=== PATIENT | male | born 1945 | race Caucasian/White ===

== ENCOUNTER 2017-11-02 10:00 | Outpatient (RCR) | payer MEDICARE, BC ==
[2015-04-15 10:15] VITALS: BMI 31.6
[2017-09-07 10:07] VITALS: BP 173/84
[2017-09-07 10:30] LABS: PLATELET COUNT, AUTOMATED 169 K/uL (150-450)
[~2017-11-02 10:00] MED LIST: ACET-1748 PO; ALB18R INH; ALBU8.5H IH; ALPR-1 PO; AZIT-17 PO; AZIT500T47 PO; CALC-852 PO; CALCIUM; CEFU500T10 PO; CELE-1 PO; CHOL200022 PO; CHOL200038 PO; CYCL10TA29 PO; DEXTROSE 5%(*) 100 ML BAG 100 ML IVPB PRN; DIPH-740 PO; ENOX60DI8 SQ; ESC10 PO; ESCI5TAB3 PO; FOL1 PO; FOLI-68 PO; GUAI-334 PO; IBAN150T6 PO; INF100I IV; INFLIXIMAB IVPB ONE; LEVO-85 PO; LIDOCAINE/SOD BICARB 8.4% SYR ID PRN; LOR5/325 PO; META-1 PO; METH2.5T43 PO; NAPR-1043 PO; NEB5 PO; NS 0.9% IVPB ONE; NS(*) 0.9% 100 ML BAG 100 ML IVPB PRN; OMEP-137 PO; OMEP-218 PO; OXYGENHOME INH; PANT40TA65 PO; PRE5 PO; PRED-1 PO; PRED20TA6 PO; SPIR25TA78 PO; WAR1 PO; WAR5 PO; WARF-18 PO
[2017-11-02 13:31] LABS: PLATELET COUNT, AUTOMATED 167 K/uL (150-450)
[2017-11-02 13:40] VITALS: BP 136/87
[2017-11-02] MEDS ORDERED: INFLIXIMAB IVPB ONE (14:00)
[2017-11-02] MEDS ORDERED: NS 0.9% IVPB ONE (14:00)
== END 2017-12-03 ==
LOC: SPU 10:00
PROVIDERS: ATTEND Internal Medicine
DX: M06.9 Rheumatoid arthritis, unspecified (principal); Z79.899 Other long term (current) drug therapy; Z79.52 Long term (current) use of systemic steroids
CPT/HCPCS: 82565; 85025; 85651; 86140; 86141; 96413; 96415; J1745; J7050; 82040; 82247; 82248; 84075; 84155; 84450; 84460

== ENCOUNTER 2018-01-04 09:57 | Outpatient (RCR) | payer MEDICARE, BC ==
[2015-04-15 10:15] VITALS: BMI 31.6
[~2018-01-04 09:57] MED LIST changes: -INFLIXIMAB IVPB ONE; -NS 0.9% IVPB ONE; -WARF-18 PO; +WARF5TAB23 PO
[2018-01-04 10:12] VITALS: BP 136/85
[2018-01-04] MEDS ORDERED: inFLIXimab 100 MG VIAL 700 MG in NS(*) 0.9% 250 ML BAG 250 ML IVPB ONE (10:35)
[2018-03-08] MEDS ORDERED: ESCI5TAB3 PO (14:18)
[2018-03-09] MEDS ORDERED: ABA250I IV (10:08)
[2018-03-18] MEDS ORDERED: CHOL200022 PO (13:27)
== END 2018-04-01 ==
LOC: SPU 09:57
PROVIDERS: ATTEND Internal Medicine
DX: M06.9 Rheumatoid arthritis, unspecified (principal); Z79.899 Other long term (current) drug therapy; Z79.52 Long term (current) use of systemic steroids
CPT/HCPCS: 96365; 96366; J1745; J7050

== ENCOUNTER 2018-03-08 11:46 | Emergency (ER) | payer MEDICARE, BC ==
[2015-04-15 10:15] VITALS: Wt 93.0 kg
[~2018-03-08 11:46] MED LIST changes: -DEXTROSE 5%(*) 100 ML BAG 100 ML IVPB PRN; -LIDOCAINE/SOD BICARB 8.4% SYR ID PRN; -NS(*) 0.9% 100 ML BAG 100 ML IVPB PRN
[2018-03-08] MEDS ORDERED: NS(*) 0.9% 500 ML BAG 500 ML IV ONE (12:11)
--- NOTE | 2018-03-08 12:11 | ER Report ---
History and Physical Time Seen By MD: 12:08 Hx. of Stated Complaint: "JUST DOESN'T FEEL WELL" aLL HIS MUSCLES AND JOINTS HURT. HAS ARTHRITIS HPI/ROS CHIEF COMPLAINT: Diffuse aches and pains in the setting of rheumatoid arthritis HISTORY OF PRESENT ILLNESS: Patient is a 72-year-old male here with complaints of diffuse aches and pains and weakness and decreased appetite for the past several days which has been progressively worsening. She has a history of rheumatoid arthritis and is currently on prednisone and Remicade. He denies recent trauma, fevers or chills. He is concerned that he has an infection which prompted his evaluation today. Patient denies headache, sore throat, chest pain , worsening shortness of breath, abdominal pain, nausea, vomiting, dysuria. Patient is on 2 L nasal cannula baseline. REVIEW OF SYSTEMS: Constitutional: No fever, no chills. Eyes: No discharge. ENT: No sore throat. Cardiovascular: No chest pain, no palpitations. Respiratory: No cough, no shortness of breath. Gastrointestinal: No abdominal pain, no vomiting. Genitourinary: No hematuria. Musculoskeletal: + diffuse aching pains in joints, weakness Skin: No rashes. Neurological: No headache or focal neuro deficits Allergies: Coded Allergies: amoxicillin (Verified Allergy, Severe, SHORTNESS OF BREATH, dizzy, rash, ) penicillin G (Verified Allergy, Intermediate, rash, 07/09/16) celecoxib (Verified Allergy, Mild, legs swollen, 07/09/16) valdecoxib (Verified Allergy, Mild, swollen legs, 07/09/16) Home Meds Active Scripts Escitalopram Oxalate (ESCITALOPRAM OXALATE) 5 Mg Tablet, 1 TAB PO QDAY, #30 TAB Prov:MAG PARTIDA MD 03/08/18 Albuterol Sulfate (VENTOLIN HFA) 18 Gm Inh, 2 PUFF INH Q4-6H Y for shortness of breath, #1 INH 3 Refills Prov:MAG PARTIDA MD 08/05/17 Warfarin Sodium (WARFARIN SODIUM) 5 Mg Tablet, 1 TAB PO QDAY, #90 TAB 3 Refills Or as directed based on INR. Prov:MAG PARTIDA MD 07/29/17 Spironolactone (SPIRONOLACTONE) 25 Mg Tablet, 1 TAB PO QAM, #90 TAB 3 Refills Prov:MAG PARTIAD MD 07/29/17 Pantoprazole Sodium (PANTOPRAZOLE SODIUM) 40 Mg Tablet.dr, 1 TAB PO QDAY, #14 TAB.SR 1 Refill Prov:MAG PARTIDA MD 07/29/17 Folic Acid (FOLIC ACID) 1 Mg Tablet, 1 TAB PO DAILY, #90 TAB 4 Refills Prov:DANAY DO PHARMD 06/01/17 Prednisone 5 Mg Tab (PREDNISONE 5 MG TAB) 5 Mg Tablet, 1-2 TAB PO QDAY, #200 TAB 2 Refills Prov:MAG PARTIDA MD 06/12/16 Omeprazole (OMEPRAZOLE) 20 Mg Tablet.dr, 1 TAB PO QAM, #90 TAB 3 Refills Prov:NACHO LANDERS MD 05/09/15 Methotrexate Sodium (METHOTREXATE) 2.5 Mg Tablet, 6 TAB PO QWEEK, #72 TAB 3 Refills Prov:NACHO LANDERS MD 05/09/15 Reported Medications Oxygen (OXYGEN) Inha, 2 L INH HS, L 2 liters nnps hs and prn during the day 11/04/16 Infliximab (REMICADE) 100 Mg Soln, 700 MG IV EVERY 8 WEEKS 08/07/14 Naproxen Sodium (ALEVE) 220 Mg Tablet, 2 TAB PO BID Y for PRN 08/07/14 Past Medical/Surgical History Patient has a history of CVA, atrial fibrillation, DVT, pulmonary embolism, rheumatoid arthritis Reviewed Nurses Notes: Yes Old Medical Records Reviewed: Yes Hx Smoking: Yes (1 ppd) Smoking Status: Current: Every Day Smoker Exposure to Second Hand Smoke?: Yes Hx Substance Use Disorder: Yes Hx Alcohol Use: Yes (rare) Constitutional Vital Sign - Last 24 Hours 03/08/18 03/08/18 03/08/18 03/08/18 11:46 11:53 11:54 12:00 Temp 98.7 Pulse ??? 94 Resp 18 B/P (MAP) 130/87 130/87 (101) 143/84 (103) Pulse Ox 86 O2 Delivery Room Air 03/08/18 03/08/18 03/08/18 03/08/18 12:01 12:16 12:30 12:46 Pulse 78 74 B/P (MAP) 131/85 (100) Pulse Ox 93 90 O2 Flow Rate 2.0 03/08/18 03/08/18 03/08/18 03/08/18 12:46 12:51 13:00 13:06 Pulse 74 74 ??? Resp 19 B/P (MAP) 136/81 (99) Pulse Ox 91 89 03/08/18 03/08/18 03/08/18 03/08/18 13:21 13:36 13:51 14:06 Pulse 68 74 66 69 Resp 15 14 37 Pulse Ox 92 93 91 03/08/18 03/08/18 03/08/18 14:21 14:26 14:36 Pulse 73 70 Resp 45 22 B/P (MAP) 146/88 (107) Pulse Ox 89 92 Intake and Output 03/08/18 03/08/18 03/09/18 15:00 23:00 07:00 Intake Total 500 ml Balance 500 ml Physical Exam General Appearance: The patient is alert, has no immediate need for airway protection and no signs of toxicity. No acute distress Eyes: Pupils equal and round no pallor or injection. ENT, Mouth: Mucous membranes are moist. Respiratory: There are no retractions, lungs are clear to auscultation. Cardiovascular: No murmurs or rubs Gastrointestinal: Abdomen is soft and non tender, no masses, bowel sounds normal. Neurological: Moving all extremities spontaneously, sensation intact in distal extremities Skin: Warm and dry, no rashes. Musculoskeletal: Neck is supple non tender. Extremities are nontender, nonswollen and have full range of motion. DIFFERENTIAL DIAGNOSIS: After history and physical exam differential diagnosis was considered for electrolyte abnormality, dehydration, RA exacerbation, infection, PMR Medical Decision Making Data Points Result Diagram: 03/08/18 1227 03/08/18 1227 Laboratory Hematology Test 03/08/18 12:27 03/08/18 12:43 Red Blood Count 5.06 M/uL (4.00-5.60) Mean Corpuscular Volume 95.8 fL (80.0-96.0) Mean Corpuscular Hemoglobin 32.2 pg (26.0-33.0) Mean Corpuscular Hemoglobin Concent 33.7 g/dL (32.0-36.0) Red Cell Distribution Width 14.0 % (11.5-14.5) Mean Platelet Volume 7.8 fL (7.2-11.1) Neutrophils (%) (Auto) 80.8 % (39.4-72.5) Lymphocytes (%) (Auto) 11.9 % (17.6-49.6) Monocytes (%) (Auto) 5.9 % (4.1-12.4) Eosinophils (%) (Auto) 0.9 % (0.4-6.7) Basophils (%) (Auto) 0.5 % (0.3-1.4) Nucleated RBC Relative Count (auto) 0.0 /100WBC Neutrophils # (Auto) 7.0 K/uL (2.0-7.4) Lymphocytes # (Auto) 1.0 K/uL (1.3-3.6) Monocytes # (Auto) 0.5 K/uL (0.3-1.0) Eosinophils # (Auto) 0.1 K/uL (0.0-0.5) Basophils # (Auto) 0.0 K/uL (0.0-0.1) Nucleated RBC Absolute Count (auto) 0.00 K/uL Erythrocyte Sedimentation Rate 44 mm/HOUR (0-20) Prothrombin Time 17.0 seconds (12.0-14.4) Prothromb Time International Ratio 1.37 Activated Partial Thromboplast Time 30 seconds (23-35) Sodium Level 142 mmol/L (137-145) Potassium Level 4.0 mmol/L (3.5-5.0) Chloride Level 103 mmol/L (98-107) Carbon Dioxide Level 26 mmol/L (22-30) Blood Urea Nitrogen 18 mg/dl (9-21) Creatinine 0.70 mg/dl (0.66-1.25) Glomerular Filtration Rate Calc > 60.0 Random Glucose 133 mg/dl (75-110) Calcium Level 9.5 mg/dl (8.4-10.2) Total Bilirubin 0.6 mg/dl (0.2-1.3) Aspartate Amino Transf (AST/SGOT) 23 U/L (0-35) Alanine Aminotransferase (ALT/SGPT) 21 U/L (0-56) Alkaline Phosphatase 74 U/L (0-126) Total Creatine Kinase 50 U/L (55-170) Total Protein 7.2 gm/dl (6.3-8.2) Albumin 3.2 g/dl (3.5-5.0) Urine Color Yellow Urine Clarity Clear Urine pH 6.0 pH (4.8-9.5) Urine Specific [place] 1.013 Urine Protein Negative mg/dL (NEGATIVE) Urine Glucose (UA) Negative mg/dL (NEGATIVE) Urine Ketones Negative mg/dL (NEGATIVE) Urine Blood Negative (NEGATIVE) Urine Nitrite Negative (NEGATIVE) Urine Bilirubin Negative (NEGATIVE) Urine Urobilinogen 2.0 mg/dL (0.2-1.9) Urine Leukocyte Esterase Negative (NEGATIVE) Urine RBC <1 /HPF (0-2/HPF) Urine WBC 1 /HPF (0-5/HPF) Urine Squamous Epithelial Cells None /LPF (</=FEW) Urine Transitional Epithelial Cells Few /LPF (NONE-FEW) Urine Bacteria Negative /HPF (NONE-FEW) Urine Mucus None /HPF (NONE-FEW) Chemistry Test 03/08/18 12:27 03/08/18 12:43 White Blood Count 8.6 k/uL (4.5-11.0) Red Blood Count 5.06 M/uL (4.00-5.60) Hemoglobin 16.3 g/dL (14.0-18.0) Hematocrit 48.4 % (42.0-52.0) Mean Corpuscular Volume 95.8 fL (80.0-96.0) Mean Corpuscular Hemoglobin 32.2 pg (26.0-33.0) Mean Corpuscular Hemoglobin Concent 33.7 g/dL (32.0-36.0) Red Cell Distribution Width 14.0 % (11.5-14.5) Platelet Count 212 K/uL (150-450) Mean Platelet Volume 7.8 fL (7.2-11.1) Neutrophils (%) (Auto) 80.8 % (39.4-72.5) Lymphocytes (%) (Auto) 11.9 % (17.6-49.6) Monocytes (%) (Auto) 5.9 % (4.1-12.4) Eosinophils (%) (Auto) 0.9 % (0.4-6.7) Basophils (%) (Auto) 0.5 % (0.3-1.4) Nucleated RBC Relative Count (auto) 0.0 /100WBC Neutrophils # (Auto) 7.0 K/uL (2.0-7.4) Lymphocytes # (Auto) 1.0 K/uL (1.3-3.6) Monocytes # (Auto) 0.5 K/uL (0.3-1.0) Eosinophils # (Auto) 0.1 K/uL (0.0-0.5) Basophils # (Auto) 0.0 K/uL (0.0-0.1) Nucleated RBC Absolute Count (auto) 0.00 K/uL Erythrocyte Sedimentation Rate 44 mm/HOUR (0-20) Prothrombin Time 17.0 seconds (12.0-14.4) Prothromb Time International Ratio 1.37 Activated Partial Thromboplast Time 30 seconds (23-35) Glomerular Filtration Rate Calc > 60.0 Calcium Level 9.5 mg/dl (8.4-10.2) Total Bilirubin 0.6 mg/dl (0.2-1.3) Aspartate Amino Transf (AST/SGOT) 23 U/L (0-35) Alanine Aminotransferase (ALT/SGPT) 21 U/L (0-56) Alkaline Phosphatase 74 U/L (0-126) Total Creatine Kinase 50 U/L (55-170) Total Protein 7.2 gm/dl (6.3-8.2) Albumin 3.2 g/dl (3.5-5.0) Urine Color Yellow Urine Clarity Clear Urine pH 6.0 pH (4.8-9.5) Urine Specific [place] 1.013 Urine Protein Negative mg/dL (NEGATIVE) Urine Glucose (UA) Negative mg/dL (NEGATIVE) Urine Ketones Negative mg/dL (NEGATIVE) Urine Blood Negative (NEGATIVE) Urine Nitrite Negative (NEGATIVE) Urine Bilirubin Negative (NEGATIVE) Urine Urobilinogen 2.0 mg/dL (0.2-1.9) Urine Leukocyte Esterase Negative (NEGATIVE) Urine RBC <1 /HPF (0-2/HPF) Urine WBC 1 /HPF (0-5/HPF) Urine Squamous Epithelial Cells None /LPF (</=FEW) Urine Transitional Epithelial Cells Few /LPF (NONE-FEW) Urine Bacteria Negative /HPF (NONE-FEW) Urine Mucus None /HPF (NONE-FEW) Coagulation Test 03/08/18 12:27 Prothrombin Time 17.0 seconds Prothromb Time International Ratio 1.37 Activated Partial Thromboplast Time 30 seconds Urinalysis Test 03/08/18 12:43 Urine Color Yellow Urine Clarity Clear Urine pH 6.0 pH (4.8-9.5) Urine Specific [place] 1.013 Urine Protein Negative mg/dL (NEGATIVE) Urine Glucose (UA) Negative mg/dL (NEGATIVE) Urine Ketones Negative mg/dL (NEGATIVE) Urine Blood Negative (NEGATIVE) Urine Nitrite Negative (NEGATIVE) Urine Bilirubin Negative (NEGATIVE) Urine Urobilinogen 2.0 mg/dL (0.2-1.9) Urine Leukocyte Esterase Negative (NEGATIVE) Urine RBC <1 /HPF (0-2/HPF) Urine WBC 1 /HPF (0-5/HPF) Urine Squamous Epithelial Cells None /LPF (</=FEW) Urine Transitional Epithelial Cells Few /LPF (NONE-FEW) Urine Bacteria Negative /HPF (NONE-FEW) Urine Mucus None /HPF (NONE-FEW) EKG/Imaging Imaging Examination: CHEST PA AND LAT Comparison: 07/09/2016 History: Weakness and cough. Findings: Mildly enlarged cardiac and hilar contour is unchanged. Diffuse peribronchial and interstitial thickening as before. No new or enlarging consolidation or definite evidence of acute peribronchial inflammation. No pneumothorax, edema, or effusion. Demineralization with chronic deformity at the thoracolumbar junction. No definite acute osseous abnormality. IMPRESSION: Chronic changes with no findings of superimposed acute cardiopulmonary disease. ED Course/Re-evaluation ED Course Patient is a 72-year-old male here with complaints of weakness, generalized body aches in the setting of rheumatoid arthritis and history significant for prior DVTs, PE, A. fib on Coumadin. Patient denies focal neurological deficits at time of evaluation. He has a possible infusion for his rheumatoid arthritis coming up in the subsequent weeks and was concerned that he may have an infectious etiology which would preclude him from obtaining the transfusion. Patient received a 500 mL bolus of normal saline and remained stable during the course of evaluation. Labs are unremarkable. ESR was elevated at 44 but is likely consistent with his history of rheumatoid arthritis. His chest x-ray showed no acute findings. The patient's aching joint pains are consistent with his rheumatoid arthritis however the weakness that he describes is likely caused by an alternate etiology though no infectious etiology was able to be identified at this time. Urinalysis was also found to be unremarkable and not consistent with infection. I discussed the findings with the patient and his family who voice understanding. They agreed to follow up with his supervisor fine grading and family physician and to return promptly for any worsening of his symptoms. Patient was hemodynamically stable at time of discharge. Re-evaluation Patient was stable at time of reevaluation during ED course. Decision to Disposition Date: Mar 08, 2018 Decision to Disposition Time: 16:40 Depart Departure Latest Vital Signs Vital Signs Date Time Temp Pulse Resp B/P (MAP) Pulse Ox O2 Delivery O2 Flow Rate FiO2 03/08/18 14:36 146/88 (107) 03/08/18 14:26 70 22 92 03/08/18 12:46 2.0 03/08/18 11:53 98.7 Room Air Impression: Primary Impression: Weakness Additional Impression: Joint ache Condition: Improved Referrals: MAG PARTIDA MD (PCP) Patient Instructions: Weakness (ED) Additional Instructions: Please follow up closely with your family care doctor and supervisor fine grading to discuss further infusions of medications Problem Qualifiers LARRY JOHANSEN DO Mar 08, 2018 12:11
[2018-03-08 12:37] LABS: PLATELET COUNT, AUTOMATED 212 K/uL (150-450)
[2018-03-08 12:46] LABS: INR 1.37
--- NOTE | 2018-03-08 13:33 | RADIOLOGY IMAGING REPORT ---
FACILITY[place] [facility] [place] NAME: Jerrod Costello : 1945 MR: [id number] V: [id number] EXAM DATE: ORDERING PHYSICIAN: LARRY JOHANSEN TECHNOLOGIST: Location: [facility] Patient: Jerrod Costello : 1945 Visit/Account:[id number] Date of Sevice: 03/08/2018 Examination: CHEST PA AND LAT Comparison: 07/09/2016 History: Weakness and cough. Findings: Mildly enlarged cardiac and hilar contour is unchanged. Diffuse peribronchial and interstit ial thickening as before. No new or enlarging consolidation or definite evidence of acute peribronchi al inflammation. No pneumothorax, edema, or effusion. Demineralization with chronic deformity at the thoracolumbar junction. No definite acute osseous abnormality. IMPRESSION: Chronic changes with no findings of superimposed acute cardiopulmonary disease. Report Dictated By: Vj Stern MD at 03/08/2018 1:27 PM Report E-Signed By: Vj Stern MD at 03/08/2018 1:29 PM [id number]
[2018-03-08] MEDS ORDERED: ESCI5TAB3 PO (14:18)
[2018-03-08 14:36] VITALS: BP 146/88
[2018-03-09] MEDS ORDERED: ABA250I IV (10:08)
== END 2018-03-08 14:45 | disposition home or self-care (01) ==
LOC: ER 12:01
DX: M06.9 Rheumatoid arthritis, unspecified (principal); F17.210 Nicotine dependence, cigarettes, uncomplicated; Z79.01 Long term (current) use of anticoagulants
CPT/HCPCS: 71046; 81001; 82550; 85025; 85610; 85651; 85730; 96360; 99284; J7040; 82040; 82247; 82310; 82374; 82435; 82565; 82947; 84075; 84132; 84155; 84295; 84450; 84460; 84520

== ENCOUNTER 2018-06-15 12:48 | Outpatient (RCR) | payer MEDICARE, BC ==
[2015-04-15 10:15] VITALS: Wt 91.5 kg
[2018-04-13 14:33] VITALS: BP 148/97
[2018-04-13 15:09] LABS: PLATELET COUNT, AUTOMATED 172 K/uL (150-450)
[2018-04-13] MEDS: NS(*) 0.9% 100 ML BAG 100 ML IVPB PRN (15:10)
[2018-05-11 13:53] VITALS: BP 146/94
[2018-05-11] MEDS: NS(*) 0.9% 100 ML BAG 100 ML IVPB PRN (14:03)
[~2018-06-15 12:48] MED LIST changes: +ABA250I IV; +ABATACEPT 250 MG SDV 750 MG in NS(*) 0.9% 100 ML BAG 100 ML IVPB ONE; +DEXTROSE 5%(*) 100 ML BAG 100 ML IVPB PRN; +LIDOCAINE/SOD BICARB 8.4% SYR ID PRN; +SPIR25TA80 PO
[2018-06-15] MEDS ORDERED: ABATACEPT 250 MG SDV 750 MG in NS(*) 0.9% 100 ML BAG 100 ML IVPB ONE (13:15)
[2018-06-15 13:17] LABS: PLATELET COUNT, AUTOMATED 186 K/uL (150-450)
[2018-06-15 13:20] VITALS: BP 116/71
[2018-06-15] MEDS: NS(*) 0.9% 100 ML BAG 100 ML IVPB PRN (13:26)
[2018-06-15 14:11] VITALS: BP 159/86
== END 2018-07-12 ==
LOC: SPU 12:48
PROVIDERS: ATTEND Internal Medicine Rheumatology
DX: M05.79 Rheumatoid arthritis with rheumatoid factor of multiple sites without organ or systems involvement (principal)
CPT/HCPCS: 85025; 85651; 86140; 96365; 96366; J0129; J7050; 82040; 82247; 82310; 82374; 82435; 82565; 82947; 84075; 84132; 84155; 84295; 84450; 84460; 84520

== ENCOUNTER 2018-09-16 09:54 | Outpatient (RCR) | payer MEDICARE, BC ==
[2015-04-15 10:15] VITALS: BMI 31.6
[2018-07-16 14:42] VITALS: BP 152/92
[2018-07-16 16:41] VITALS: BP 132/82
[2018-08-16 10:56] VITALS: BP 140/69
[2018-08-16 11:14] LABS: PLATELET COUNT, AUTOMATED 227 K/uL (150-450)
[2018-08-16] MEDS: NS(*) 0.9% 100 ML BAG 100 ML IVPB PRN (11:29)
[2018-08-16 12:08] VITALS: BP 130/80
[~2018-09-16 09:54] MED LIST changes: +CHOL200018 PO; -CHOL200022 PO
[2018-09-16 10:01] VITALS: BP 141/113
[2018-09-16] MEDS ORDERED: ABATACEPT 250 MG SDV 750 MG in NS(*) 0.9% 100 ML BAG 100 ML IVPB ONE (10:05)
[2018-09-16] MEDS: NS(*) 0.9% 100 ML BAG 100 ML IVPB PRN (10:40)
[2018-09-30] MEDS ORDERED: OMEP-137 PO (13:31)
[2018-09-30] MEDS ORDERED: WARF5TAB23 PO (13:32)
[2018-09-30] MEDS ORDERED: ESCI5TAB3 PO (13:32)
== END 2018-10-13 ==
LOC: SPU 09:54
PROVIDERS: ATTEND Internal Medicine Rheumatology
DX: M05.79 Rheumatoid arthritis with rheumatoid factor of multiple sites without organ or systems involvement (principal)
CPT/HCPCS: 85025; 85651; 86140; 96365; J0129; J7050; 82040; 82247; 82310; 82374; 82435; 82565; 82947; 84075; 84132; 84155; 84295; 84450; 84460; 84520

== ENCOUNTER 2019-01-04 12:34 | Emergency (ER) | payer MEDICARE, BC ==
[2015-04-15 10:15] VITALS: Wt 93.0 kg
[~2019-01-04 12:34] MED LIST changes: -ABATACEPT 250 MG SDV 750 MG in NS(*) 0.9% 100 ML BAG 100 ML IVPB ONE; -DEXTROSE 5%(*) 100 ML BAG 100 ML IVPB PRN; -LIDOCAINE/SOD BICARB 8.4% SYR ID PRN
[2019-01-04] MEDS ORDERED: PRED-317 PO (12:48)
--- NOTE | 2019-01-04 13:08 | ER Report ---
History and Physical Time Seen By MD: 12:50 Hx. of Stated Complaint: Patient with dark urine x 2 days. Also with chronic back pain HPI/ROS CHIEF COMPLAINT: Dark urine HISTORY OF PRESENT ILLNESS: 73-year-old male is on Coumadin for history of PE, presents with dark urine 2 days. He has never had this before. He does not have pain with urination. Every urine sample is dark. He has no fevers, chills, shortness breath, chest pain, new swelling in legs. He has a recent URI has been taking Mucinex and Robitussin. He has not had recent significant sore throat. He does not have recent trauma or change in bruising. He is on home 02 for copd and chf REVIEW OF SYSTEMS: Constitutional: No fever, no chills. Eyes: no blurred vision ENT: No sore throat. Cardiovascular: No chest pain, no palpitations. Respiratory: No cough, no shortness of breath. Gastrointestinal: No abdominal pain, no vomiting. Genitourinary: above Musculoskeletal: No back pain. Skin: No rashes. Neurological: No headache. Remainder of the 14 system rev: Yes Allergies: Coded Allergies: amoxicillin (Verified Allergy, Severe, SHORTNESS OF BREATH, dizzy, rash, 07/09/16) penicillin G (Verified Allergy, Intermediate, rash, 07/09/16) celecoxib (Verified Allergy, Mild, legs swollen, 07/09/16) valdecoxib (Verified Allergy, Mild, swollen legs, 07/09/16) Home Meds Active Scripts Escitalopram Oxalate (ESCITALOPRAM OXALATE) 5 Mg Tablet, 1 TAB PO QDAY, #90 TAB 3 Refills Prov:MAG PARTIDA MD 09/30/18 Warfarin Sodium (WARFARIN SODIUM) 5 Mg Tablet, 1 TAB PO QDAY, #90 TAB 3 Refills Or as directed based on INR. Prov:MAG PARTIDA MD 09/30/18 Omeprazole (OMEPRAZOLE) 20 Mg Tablet., 1 TAB PO DAILY PRN for heartburn, #90 T AB 3 Refills Prov:MAG PARTIDA MD 09/30/18 Spironolactone (SPIRONOLACTONE) 25 Mg Tablet, 1 TAB PO QAM, #90 TAB 3 Refills Prov:MAG PARTIDA MD 07/28/18 Albuterol Sulfate (VENTOLIN HFA) 18 Gm Inh, 2 PUFF INH Q4-6H PRN for shortness of breath, #1 INH 3 Refills Prov:MAG PARTIDA MD 08/05/17 Folic Acid (FOLIC ACID) 1 Mg Tablet, 1 TAB PO DAILY, #90 TAB 4 Refills Prov:DANAY DO PHARMD 06/01/17 Methotrexate Sodium (METHOTREXATE) 2.5 Mg Tablet, 6 TAB PO QWEEK, #72 TAB 3 Refills Prov:NACHO LANDERS MD 05/09/15 Reported Medications Prednisone (Prednisone) 5 Mg Tablet, 1 TAB PO DAILY 01/04/19 Cholecalciferol (Vitamin D3) (VITAMIN D) 2,000 Unit Tablet, 1 TAB PO QDAY, CAP JAKY 03/18/18 Abatacept (Orencia 250 mg Vial) 250 Mg Vial, 750 MG IV Q4WK 03/09/18 Oxygen (OXYGEN) Inha, 2 L INH cont 11/04/16 Discontinued Scripts Prednisone 5 Mg Tab (PREDNISONE 5 MG TAB) 5 Mg Tablet, 1-2 TAB PO QDAY, #200 TAB 2 Refills Prov:MAG PARTIDA MD 06/12/16 Reviewed Nurses Notes: Yes Old Medical Records Reviewed: Yes Hx Smoking: Yes (1 ppd) Smoking Status: Current: Every Day Smoker Exposure to Second Hand Smoke?: Yes Hx Substance Use Disorder: Yes Hx Alcohol Use: Yes (rare) Constitutional Vital Sign - Last 24 Hours 01/04/19 12:41 Temp 99.1 Pulse 97 Resp 16 B/P (MAP) 121/70 Pulse Ox 91 O2 Delivery Nasal Cannula Physical Exam General Appearance: The patient is alert, has no immediate need for airway protection and no signs of toxicity. Eyes: Pupils equal and round no pallor or injection. ENT, Mouth: Mucous membranes are moist. Respiratory: There are no retractions, lungs are clear to auscultation. Cardiovascular: Regular rate and rhythm. Gastrointestinal: Abdomen is soft and non tender, no masses, bowel sounds normal. Neurological: alert, no focal deficits Skin: Warm and dry, no rashes. Small ecchymoses of varying stages Musculoskeletal: Extremities are nontender, nonswollen and have full range of motion. DIFFERENTIAL DIAGNOSIS: After history and physical exam differential diagnosis was considered for hematuria, uti, renal failure, or other etiology of presentation. Medical Decision Making Data Points Result Diagram: 01/04/19 1317 01/04/19 1317 Laboratory Hematology Test 01/04/19 13:17 01/04/19 13:36 01/04/19 13:40 Red Blood Count 5.26 M/uL (4.00-5.60) Mean Corpuscular Volume 92.1 fL (80.0-96.0) Mean Corpuscular Hemoglobin 30.0 pg (26.0-33.0) Mean Corpuscular Hemoglobin Concent 32.6 g/dL (32.0-36.0) Red Cell Distribution Width 14.9 % (11.5-14.5) Mean Platelet Volume 7.8 fL (7.2-11.1) Neutrophils (%) (Auto) 83.9 % (39.4-72.5) Lymphocytes (%) (Auto) 5.3 % (17.6-49.6) Monocytes (%) (Auto) 9.1 % (4.1-12.4) Eosinophils (%) (Auto) 1.1 % (0.4-6.7) Basophils (%) (Auto) 0.6 % (0.3-1.4) Nucleated RBC Relative Count (auto) 0.0 /100WBC Neutrophils # (Auto) 9.8 K/uL (2.0-7.4) Lymphocytes # (Auto) 0.6 K/uL (1.3-3.6) Monocytes # (Auto) 1.1 K/uL (0.3-1.0) Eosinophils # (Auto) 0.1 K/uL (0.0-0.5) Basophils # (Auto) 0.1 K/uL (0.0-0.1) Nucleated RBC Absolute Count (auto) 0.00 K/uL Sodium Level 136 mmol/L (137-145) Potassium Level 4.1 mmol/L (3.5-5.0) Chloride Level 102 mmol/L (98-107) Carbon Dioxide Level 27 mmol/L (22-30) Blood Urea Nitrogen 20 mg/dl (9-21) Creatinine 0.60 mg/dl (0.66-1.25) Glomerular Filtration Rate Calc > 60.0 Random Glucose 164 mg/dl (75-110) Calcium Level 9.4 mg/dl (8.4-10.2) Total Bilirubin 0.8 mg/dl (0.2-1.3) Aspartate Amino Transf (AST/SGOT) 20 U/L (0-35) Alanine Aminotransferase (ALT/SGPT) 17 U/L (0-56) Alkaline Phosphatase 76 U/L (0-126) Total Protein 7.1 g/dl (6.3-8.2) Albumin 3.7 g/dl (3.5-5.0) Prothrombin Time 22.4 seconds (12.0-14.4) Prothromb Time International Ratio 1.94 Activated Partial Thromboplast Time 34 seconds (23-35) Urine Color [place] Urine Clarity Slightly-cloudy Urine pH 5.0 pH (4.8-9.5) Urine Specific [place] 1.027 Urine Protein 100 mg/dL (NEGATIVE) Urine Glucose (UA) Negative mg/dL (NEGATIVE) Urine Ketones Negative mg/dL (NEGATIVE) Urine Blood Large (NEGATIVE) Urine Nitrite Negative (NEGATIVE) Urine Bilirubin Negative (NEGATIVE) Urine Urobilinogen 2.0 mg/dL (0.2-1.9) Urine Leukocyte Esterase Negative (NEGATIVE) Urine RBC 212 /HPF (0-2/HPF) Urine WBC 17 /HPF (0-5/HPF) Urine Squamous Epithelial Cells None /LPF (</=FEW) Urine Bacteria Negative /HPF (NONE-FEW) Urine Mucus Few /HPF (NONE-FEW) Chemistry Test 01/04/19 13:17 01/04/19 13:36 01/04/19 13:40 White Blood Count 11.6 k/uL (4.5-11.0) Red Blood Count 5.26 M/uL (4.00-5.60) Hemoglobin 15.8 g/dL (14.0-18.0) Hematocrit 48.4 % (42.0-52.0) Mean Corpuscular Volume 92.1 fL (80.0-96.0) Mean Corpuscular Hemoglobin 30.0 pg (26.0-33.0) Mean Corpuscular Hemoglobin Concent 32.6 g/dL (32.0-36.0) Red Cell Distribution Width 14.9 % (11.5-14.5) Platelet Count 226 K/uL (150-450) Mean Platelet Volume 7.8 fL (7.2-11.1) Neutrophils (%) (Auto) 83.9 % (39.4-72.5) Lymphocytes (%) (Auto) 5.3 % (17.6-49.6) Monocytes (%) (Auto) 9.1 % (4.1-12.4) Eosinophils (%) (Auto) 1.1 % (0.4-6.7) Basophils (%) (Auto) 0.6 % (0.3-1.4) Nucleated RBC Relative Count (auto) 0.0 /100WBC Neutrophils # (Auto) 9.8 K/uL (2.0-7.4) Lymphocytes # (Auto) 0.6 K/uL (1.3-3.6) Monocytes # (Auto) 1.1 K/uL (0.3-1.0) Eosinophils # (Auto) 0.1 K/uL (0.0-0.5) Basophils # (Auto) 0.1 K/uL (0.0-0.1) Nucleated RBC Absolute Count (auto) 0.00 K/uL Glomerular Filtration Rate Calc > 60.0 Calcium Level 9.4 mg/dl (8.4-10.2) Total Bilirubin 0.8 mg/dl (0.2-1.3) Aspartate Amino Transf (AST/SGOT) 20 U/L (0-35) Alanine Aminotransferase (ALT/SGPT) 17 U/L (0-56) Alkaline Phosphatase 76 U/L (0-126) Total Protein 7.1 g/dl (6.3-8.2) Albumin 3.7 g/dl (3.5-5.0) Prothrombin Time 22.4 seconds (12.0-14.4) Prothromb Time International Ratio 1.94 Activated Partial Thromboplast Time 34 seconds (23-35) Urine Color Renu Urine Clarity Slightly-cloudy Urine pH 5.0 pH (4.8-9.5) Urine Specific [place] 1.027 Urine Protein 100 mg/dL (NEGATIVE) Urine Glucose (UA) Negative mg/dL (NEGATIVE) Urine Ketones Negative mg/dL (NEGATIVE) Urine Blood Large (NEGATIVE) Urine Nitrite Negative (NEGATIVE) Urine Bilirubin Negative (NEGATIVE) Urine Urobilinogen 2.0 mg/dL (0.2-1.9) Urine Leukocyte Esterase Negative (NEGATIVE) Urine RBC 212 /HPF (0-2/HPF) Urine WBC 17 /HPF (0-5/HPF) Urine Squamous Epithelial Cells None /LPF (</=FEW) Urine Bacteria Negative /HPF (NONE-FEW) Urine Mucus Few /HPF (NONE-FEW) Coagulation Test 01/04/19 13:36 Prothrombin Time 22.4 seconds Prothromb Time International Ratio 1.94 Activated Partial Thromboplast Time 34 seconds Urinalysis Test 01/04/19 13:40 Urine Color Renu Urine Clarity Slightly-cloudy Urine pH 5.0 pH (4.8-9.5) Urine Specific [place] 1.027 Urine Protein 100 mg/dL (NEGATIVE) Urine Glucose (UA) Negative mg/dL (NEGATIVE) Urine Ketones Negative mg/dL (NEGATIVE) Urine Blood Large (NEGATIVE) Urine Nitrite Negative (NEGATIVE) Urine Bilirubin Negative (NEGATIVE) Urine Urobilinogen 2.0 mg/dL (0.2-1.9) Urine Leukocyte Esterase Negative (NEGATIVE) Urine RBC 212 /HPF (0-2/HPF) Urine WBC 17 /HPF (0-5/HPF) Urine Squamous Epithelial Cells None /LPF (</=FEW) Urine Bacteria Negative /HPF (NONE-FEW) Urine Mucus Few /HPF (NONE-FEW) ED Course/Re-evaluation ED Course Pt presents wtih sgs of hematuria. Nl blood count and INR low therapeutic; ua most c/w likely uti/hemorrhagic cystitis but without significant abnormality. Wi ll initiate ax and offer f/u with pcm and urologist for re-evaluation. Decision to Disposition Date: Jan 04, 2019 Decision to Disposition Time: 14:16 Depart Departure Latest Vital Signs Vital Signs Date Time Temp Pulse Resp B/P (MAP) Pulse Ox O2 Delivery O2 Flow Rate FiO2 01/04/19 12:41 99.1 97 16 121/70 91 Nasal Cannula Impression: Primary Impression: Hemorrhagic cystitis Condition: Improved Disposition: HOME OR SELF-CARE Referrals: MAG PARTIDA MD (PCP) 5 Days EDGAR PENA MD 1 Week New Scripts Cephalexin 500 Mg Tab (KEFLEX 500 MG TAB) 500 Mg Tablet 500 MG PO BID for 7 Days, #14 TAB Prov: JOSE ENRIQUE COYLE MD 01/04/19 Patient Instructions: Urinary Tract Infection in Men (DC) Additional Instructions: Your findings are most consistent with a bladder infection. I have initiated an antibiotic and transmitted the prescription. Please take the entire course. You have tolerated similar class of antibiotics in the past. However, mild please return for rash swelling or any concerns. I recommend you follow up with primary doctor as well as the urologist, for reevaluation and ensuring that you improve. JOSE ENRIQUE COYLE MD Jan 04, 2019 13:08
[2019-01-04 13:27] LABS: PLATELET COUNT, AUTOMATED 226 K/uL (150-450)
[2019-01-04 13:51] LABS: INR 1.94
[2019-01-04 14:00] VITALS: BP 140/78
[2019-01-04] MEDS ORDERED: CEPHALEXIN MONO 500 MG CAP PO ONE (14:15)
[2019-01-04] MEDS ORDERED: CEPH500T7 PO (14:19)
== END 2019-01-04 14:30 | disposition home or self-care (01) ==
LOC: ER 12:41
DX: N30.91 Cystitis, unspecified with hematuria (principal)
CPT/HCPCS: 36415; 81001; 85025; 85610; 85730; 87088; 99283; A9270; 82040; 82247; 82310; 82374; 82435; 82565; 82947; 84075; 84132; 84155; 84295; 84450; 84460; 84520

== ENCOUNTER 2019-01-07 13:00 | Outpatient (RCR) | payer MEDICARE, BC ==
[2015-04-15 10:15] VITALS: BMI 31.6
[2018-10-18 13:10] VITALS: BP 134/75
[2018-10-18 13:29] LABS: PLATELET COUNT, AUTOMATED 198 K/uL (150-450)
[2018-11-18 13:30] VITALS: BP 145/79
[2018-11-18] MEDS: LIDOCAINE/SOD BICARB 8.4% SYR ID PRN (13:53)
[2018-11-18 14:37] VITALS: BP 116/78
[~2019-01-07 13:00] MED LIST changes: +ABATACEPT 250 MG SDV 750 MG in NS(*) 0.9% 100 ML BAG 100 ML IVPB ONE; +CEPH500T7 PO; +DEXTROSE 5%(*) 100 ML BAG 100 ML IVPB PRN; +NS(*) 0.9% 100 ML BAG 100 ML IVPB PRN; +PRED-317 PO
[2019-01-07 13:29] LABS: PLATELET COUNT, AUTOMATED 222 K/uL (150-450)
[2019-01-07 13:33] VITALS: BP 129/82
[2019-01-07] MEDS: LIDOCAINE/SOD BICARB 8.4% SYR ID PRN (13:35)
[2019-01-07] MEDS ORDERED: ABATACEPT 250 MG SDV 750 MG in NS(*) 0.9% 100 ML BAG 100 ML IVPB ONE (14:00)
== END 2019-01-16 ==
LOC: SPU 13:00
PROVIDERS: ATTEND Internal Medicine Rheumatology
DX: M05.79 Rheumatoid arthritis with rheumatoid factor of multiple sites without organ or systems involvement (principal)
CPT/HCPCS: 85025; 85651; 86140; 96365; J0129; J7050; 82040; 82247; 82310; 82374; 82435; 82565; 82947; 84075; 84132; 84155; 84295; 84450; 84460; 84520

== ENCOUNTER → 2019-02-22 | Outpatient (CLI) | payer MEDICARE, BC ==
[2015-04-15 10:15] VITALS: BMI 31.6
[~2019-02-22] MED LIST changes: -ABATACEPT 250 MG SDV 750 MG in NS(*) 0.9% 100 ML BAG 100 ML IVPB ONE; -DEXTROSE 5%(*) 100 ML BAG 100 ML IVPB PRN; +IBAN150T16 PO; -IBAN150T6 PO; -NS(*) 0.9% 100 ML BAG 100 ML IVPB PRN
[2019-02-22 16:01] LABS: PLATELET COUNT, AUTOMATED 214 K/uL (150-450)
== END ==
LOC: LAB 15:42
PROVIDERS: ATTEND Nurse Practitioner Primary Care
DX: R31.0 Gross hematuria (principal)
CPT/HCPCS: 36415; 81001; 82040; 82247; 82310; 82374; 82435; 82565; 82947; 84075; 84132; 84155; 84295; 84450; 84460; 84520; 85025

== ENCOUNTER → 2019-03-04 | Outpatient (CLI) | payer MEDICARE, BC ==
[2015-04-15 10:15] VITALS: BMI 31.6
[~2019-03-04] MED LIST changes: +CIPR-214 PO
== END ==
LOC: LAB 14:00
PROVIDERS: ATTEND Urology
DX: R31.9 Hematuria, unspecified (principal)
CPT/HCPCS: 88108

== ENCOUNTER → 2019-03-07 | Outpatient (CLI) | payer MEDICARE, BC ==
[2015-04-15 10:15] VITALS: BMI 31.6
[~2019-03-07] MED LIST changes: +IOPAMIDOL 76% 150 ML INFUS BTL 150 ML ONE; +NS(*) 0.9% 50 ML BAG 50 ML ONE
--- NOTE | 2019-03-07 13:55 | RADIOLOGY IMAGING REPORT ---
FACILITY: [facility] - [place] PATIENT NAME: Jerrod Costello : 1945 MR: [id number] V: [id number] EXAM DATE: ORDERING PHYSICIAN: SARITA SARAVIA TECHNOLOGIST: Location: [facility] [place] Patient: Jerrod Costello : 1945 Visit/Account:[id number] Date of Sevice: 03/07/2019 CT ABDOMEN PELVIS W & W/O CONTRAST HISTORY: gross hematuria, hemorrhagic cystitis TECHNIQUE: Axial images acquired through the abdomen/pelvis both with and without IV contrast.. Kaela nal and sagittal reformatting also performed.Dose Lowering Technique One of the following dose optimization techniques was utilized in the performance of this exam: Autom ated exposure control; adjustment of the mA and/or kV according to the patient's size; or use of an i terative reconstruction technique. Specific details can be referenced in the facility's radiology C T exam operational policy. CONTRAST: 125 mL Isovue-370 COMPARISON: CT chest January 16, 2016 FINDINGS: Visualized lung bases: There is by basilar scarring and a tiny left pleural effusion Hepatobiliary: Negative. Spleen: Calcified granuloma Adrenals: Negative. Pancreas: Negative. Kidneys ureters and bladder: On the noncontrast portion examination there is contrast seen in the vik al collecting systems ureters and bladder therefore evaluation for potential urolithiasis is not poss ible. There is no evidence of hydronephrosis or hydroureter. There is mild perinephric stranding bi laterally. The inferior right side of the bladder wall appears slightly irregular. Genitalia: Prostate gland contains coarse calcifications and impinges mildly upon the floor the urin elsy bladder GI: There is mild diverticulosis of the left side of the colon although no CT evidence of acute dive rticulitis . Vessels/spaces/nodes: There are extensive atherosclerotic calcifications throughout the abdominal ao rta and branch vessels. There is a 2.3 x 2.7 x 2.4 cm saccular aneurysm extending from the right lat eral aspect of the distal abdominal aorta just proximal to the iliac bifurcation. 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 There is diffuse osteopenia pr esent. There is mild loss of height of the superior endplate of L4. There is a severe compression f racture at L1 with vertebroplasty changes. Is a severe compression fractures also noted at T12 and T 11. Incompletely imaged is the T10 vertebral body. There appears to be a lytic/lucent lesion involv ing the right side of the T10 vertebral body. There are severe degenerative changes of the left hip Additional findings: None pertinent. IMPRESSION: On the noncontrast portion examination there is contrast in the renal collecting systems ureters and bladder therefore evaluation for potential urolithiasis possible. Mild perinephric strandy bilaterally The anterior right-sided the bladder wall appears slightly irregular. This could be inflammatory or neoplastic in etiology By basilar parenchymal scarring and tiny left pleural effusion Prostate gland contains coarse calcination occasions and impinges mildly upon the floor the bladder Extensive atherosclerotic calcifications throughout the abdominal aorta and branch vessels. There is a 2.3 x 2.7 x 2.4 cm saccular aneurysm extending from the right lateral aspect of the distal abdominal aorta Aneurysmal dilatation of the right common iliac artery Right inguinal hernia containing fat Multiple compression fractures in the thoracal lumbar spine as described. Incompletely imaged is the T10 vertebral body where there appears to be a lytic/lucent lesion involving the right side. Clinic al correlation needed Mild diverticulosis left-sided of the colon Report Dictated By: Sil Eagle MD at 03/07/2019 1:34 PM Report E-Signed By: Sil Eagle MD at 03/07/2019 1:50 PM WSN:[id number]
== END ==
LOC: CT 00:48
PROVIDERS: ATTEND Urology
DX: J90 Pleural effusion, not elsewhere classified (principal); N40.1 Benign prostatic hyperplasia with lower urinary tract symptoms; I25.10 Atherosclerotic heart disease of native coronary artery without angina pectoris; I71.4 Abdominal aortic aneurysm, without rupture; K40.90 Unilateral inguinal hernia, without obstruction or gangrene, not specified as recurrent; K57.30 Diverticulosis of large intestine without perforation or abscess without bleeding; S22.000A Wedge compression fracture of unspecified thoracic vertebra, initial encounter for closed fracture
CPT/HCPCS: 74178; J7050; Q9967

== ENCOUNTER 2019-03-10 13:54 | Outpatient (RCR) | payer MEDICARE, BC ==
[2015-04-15 10:15] VITALS: Wt 87.0 kg
[2019-02-04 12:55] VITALS: BP 145/77
[2019-02-04 14:11] VITALS: BP 121/70
[2019-02-04] MEDS: NS(*) 0.9% 100 ML BAG 100 ML IVPB PRN (14:13)
[~2019-03-10 13:54] MED LIST changes: +ABATACEPT 250 MG SDV 750 MG in NS(*) 0.9% 100 ML BAG 100 ML IVPB ONE; +DEXTROSE 5%(*) 100 ML BAG 100 ML IVPB PRN; -IOPAMIDOL 76% 150 ML INFUS BTL 150 ML ONE; +LIDOCAINE/SOD BICARB 8.4% SYR ID PRN; -NS(*) 0.9% 50 ML BAG 50 ML ONE
[2019-03-10 14:04] VITALS: BP 154/74
[2019-03-10] MEDS: NS(*) 0.9% 100 ML BAG 100 ML IVPB PRN (14:29)
[2019-03-10 14:30] LABS: PLATELET COUNT, AUTOMATED 223 K/uL (150-450)
[2019-03-10] MEDS ORDERED: ABATACEPT 250 MG SDV 750 MG in NS(*) 0.9% 100 ML BAG 100 ML IVPB ONE (14:30)
[2019-03-10 15:30] VITALS: BP 122/69
[2019-04-07] MEDS ORDERED: LACT237L30 PO (11:16)
[2019-04-07] MEDS ORDERED: DIPH-740 PO (11:16)
[2019-04-07] MEDS ORDERED: NAPR220C12 PO (11:16)
[2019-04-07] MEDS ORDERED: CETI5TAB25 PO (11:55)
[2019-04-28] MEDS ORDERED: ENOX40DI9 SQ (14:05)
== END 2019-05-04 ==
LOC: SPU 13:54
PROVIDERS: ATTEND Internal Medicine Rheumatology
DX: M05.79 Rheumatoid arthritis with rheumatoid factor of multiple sites without organ or systems involvement (principal)
CPT/HCPCS: 85025; 85651; 86140; 96365; J0129; J7050; 82040; 82247; 82310; 82374; 82435; 82565; 82947; 84075; 84132; 84155; 84295; 84450; 84460; 84520

== ENCOUNTER → 2019-04-07 | Outpatient (CLI) | payer MEDICARE, BC ==
[2015-04-15 10:15] VITALS: BMI 31.6
[~2019-04-07] MED LIST changes: -ABATACEPT 250 MG SDV 750 MG in NS(*) 0.9% 100 ML BAG 100 ML IVPB ONE; +CETI5TAB25 PO; -DEXTROSE 5%(*) 100 ML BAG 100 ML IVPB PRN; +LACT237L30 PO; -LIDOCAINE/SOD BICARB 8.4% SYR ID PRN; +NAPR220C12 PO
[2019-04-07 12:55] LABS: PLATELET COUNT, AUTOMATED 215 K/uL (150-450)
--- NOTE | 2019-04-07 17:33 | RADIOLOGY IMAGING REPORT ---
[place] [facility] [place] NAME: Jerrod Costello : 1945 MR: [id number] V: [id number] EXAM DATE: ORDERING PHYSICIAN: WENDY NEAL TECHNOLOGIST: [facility] Patient: Jerrod Costello : 1945 Visit/Account:[id number] Date of Sevice: 04/07/2019 CERVICAL SPINE MIN 4 VIEW Indication: Pre-Op, pain Comparison: None. Findings: The vertebral bodies and posterior elements are intact. Alignment is maintained. The right and left neural foramen are patent. Soft tissues are normal. IMPRESSION: Negative cervical spine radiograph. Report Dictated By: Cash Alvarez at 04/07/2019 5:28 PM Report E-Signed By: Cash Alvarez at 04/07/2019 5:29 PM WSN:[id number]
--- NOTE | 2019-04-08 10:12 | EKG ---
FACILITY: [facility] PATIENT NAME: HERBERTH VANG : [id number] MR: [id number] V: [id number] EXAM DATE: ORDERING PHYSICIAN: WENDY NEAL TECHNOLOGIST: MELVA Test Reason : PREOP CLEARANCE Blood Pressure : / mmHG Vent. Rate : 063 BPM Atrial Rate : 063 BPM P-R Int : 194 ms QRS Dur : 102 ms QT Int : 414 ms P-R-T Axes : 037 -26 -81 degrees QTc Int : 423 ms Normal sinus rhythm with sinus arrhythmia ST and T wave abnormality, consider inferolateral ischemia Abnormal ECG When compared with ECG of 09-JUL-2016 16:32, Inverted T waves have replaced nonspecific T wave abnormality in Inferior leads T wave inversion now evident in Lateral leads Referred By: VAL Confirmed By:
== END ==
LOC: LAB 12:19
PROVIDERS: ATTEND Family Medicine
DX: Z01.818 Encounter for other preprocedural examination (principal); C67.9 Malignant neoplasm of bladder, unspecified; M54.9 Dorsalgia, unspecified
CPT/HCPCS: 36415; 72050; 82040; 82247; 82310; 82374; 82435; 82565; 82947; 84075; 84132; 84155; 84295; 84450; 84460; 84520; 85025

== ENCOUNTER → 2019-04-15 | Outpatient (CLI) | payer MEDICARE, BC ==
[2015-04-15 10:15] VITALS: BMI 31.6
[~2019-04-15] MED LIST changes: +REGADENOSON 0.4 MG/5 ML SYR ONE
--- NOTE | 2019-04-15 16:26 | RADIOLOGY IMAGING REPORT ---
FACILITY: [facility] PATIENT NAME: Jerrod Costello : 1945 MR: [id number] V: [id number] EXAM DATE: ORDERING PHYSICIAN: WENDY NEAL TECHNOLOGIST: Location: [facility] Patient: Jerrod Costello : 1945 Visit/Account:[id number] Date of Sevice: 04/15/2019 EXAMINATION: Single isotope SPECT imaging with regadenoson infusion and gated SPECT imaging. DATE OF EXAMINATION: April 15, 2019. DATE OF INTERPRETATION: April 15, 2019. REQUESTING PHYSICIAN: WENDY NEAL. INDICATION: The patient is a 73-year-old male evaluated for CAD. PROCEDURE: After informed consent the patient received an intravenous injection of 12.6 mCi of Tc-99 m sestamibi followed at an appropriate time interval by rest imaging. The patient then subsequently received an intravenous infusion of 0.4 mg of regadenoson per protocol without complication. Resting heart rate was 66 bpm with a peak heart rate of 93 bpm. Blood pressure at rest was 133 / 69 and fol lowing infusion was 143 / 62. Baseline EKG demonstrates normal sinus rhythm with diffuse T-wave abno rmality. There were no diagnostic EKG changes of ischemia following infusion. Symptoms were nonspec ific. The patient then received an intravenous injection of 28.9 mCi of Tc-99m sestamibi followed by stress imaging. RAW DATA: Examination of the summed raw data revealed a good quality study. MYOCARDIAL PERFUSION: The tomographic images demonstrate fairly normal perfusion at rest. At stress there is a moderate apical defect. It is moderate in size and moderate in degree. It is suspicious fo r apical ischemia. It would be consistent with mid to distal LAD disease.. GATED IMAGES: The gated images demonstrate a normal ejection fraction at 67% with mild apical hypoki nesis. IMPRESSION: 1. Baseline EKG has diffuse T-wave inversion but has no significant changes during stress. Resting i mages are fairly normal however at stress there is an apical defect as outlined above suspicious for mid to distal LAD disease. This result was passed on to the primary provider. 2. Abnormal myocardial perfusion scan. 3. Normal LV systolic function; LVEF 67%. 4. Based on the results of this exam, the patient appears to be at intermediate risk for future cardi ovascular events. Report Dictated By: Martin Hunter MD at 04/15/2019 4:19 PM Report E-Signed By: Martin Hunter MD at 04/15/2019 4:24 PM WSN:[id number]
--- NOTE | 2019-04-15 20:17 | RT STRESS TEST REPORT ---
FACILITY: [facility] - [place] PATIENT NAME: HERBERTH VANG : [id number] MR: [id number] V: [id number] EXAM DATE: ORDERING PHYSICIAN: WENDY NEAL TECHNOLOGIST: Sofia Acquisition Time: 2019-04-15 14:30:38 Total Exercise Time: 00:01:00 Test Indications: Abnormal ECG Medications: see nuclear med sheet Protocol: LEXISCAN Max HR: 093 BPM 62% of Pred: 149 BPM Max BP: 143/062 mmHG Max Work Load: 1.0 METS Non-diagnostic EKG portion of stress test. Await imaging results for complete study. Confirmed by Juan Arvizu ([id number]) on 04/15/2019 8:16:45 PM Referred By: Overread By: Juan Zaman
== END ==
LOC: RESP 02:07
PROVIDERS: ATTEND Family Medicine
DX: Z01.818 Encounter for other preprocedural examination (principal); R94.31 Abnormal electrocardiogram [ECG] [EKG]
CPT/HCPCS: 78452; 93017; A9500; J2785

== ENCOUNTER 2019-05-02 01:33 | Observation (INO) | payer MEDICARE, BC ==
[2015-04-15 10:15] VITALS: Ht 170.2 cm; Wt 84.8 kg
--- NOTE | 2019-04-29 15:16 | NUR ---
PC TO DR. LILLY, LEFT REQUESTING DECISION TO COVER TYPICAL PREDNISONE DOSE WITH ANYTHING DOS, LEFT PAT3 NUMBER TO CALL BACK.
[~2019-05-02] VITALS: Ht 170.2 cm; Wt 84.8 kg
[2019-05-02] VITALS (13 sets, daily range): BP systolic 95–133; BP diastolic 48–153
[~2019-05-02 01:33] MED LIST changes: +ENOX40DI9 SQ; -REGADENOSON 0.4 MG/5 ML SYR ONE
[2019-05-02] MEDS ORDERED: FAMOTIDINE 20 MG TAB PO ONE (08:45)
[2019-05-02] MEDS ORDERED: NORMOSOL R SOLN(*) 1000 ML BAG 1,000 ML IV PRN (08:45)
[2019-05-02] MEDS ORDERED: MIDAZOLAM 2 MG/2 ML VIAL IVP PRN (08:45)
[2019-05-02] MEDS ORDERED: LIDOCAINE/SOD BICARB 8.4% SYR ID ONE (08:45)
[2019-05-02] MEDS ORDERED: DEXAMETHASONE SOD 4 MG/ML VIAL ONE (09:17)
[2019-05-02] MEDS ORDERED: PROPOFOL EMUL(*) 10MG/ML 20 ML 20 ML ONE (09:17)
[2019-05-02] MEDS ORDERED: fentaNYL CITR 100 MCG/2 ML AMP ONE (09:17)
[2019-05-02] MEDS ORDERED: ONDANSETRON 4 MG/2 ML VIAL ONE (09:17)
[2019-05-02] MEDS ORDERED: LIDOCAINE MPF 1% 5 ML VIAL ONE (09:17)
[2019-05-02] MEDS ORDERED: LEVOFLOXACIN/D5W*500 MG/100 ML 100 ML IVPB ONE (09:35)
[2019-05-02] MEDS ORDERED: KETAMINE HCL-NS 50 MG/5 ML SYR ONE (09:49)
[2019-05-02 10:03] LABS: INR 1.12
[2019-05-02] MEDS ORDERED: BUPIVACAIN 0.25% INJ 50ML VIAL ONE (10:07)
[2019-05-02] MEDS ORDERED: BELLADONNA ALK/OPIUM 60MG SUPP PR ONE (10:07)
[2019-05-02] MEDS ORDERED: HYDROCORTISONE 100 MG/2 ML IVP ONE (10:20)
[2019-05-02] MEDS ORDERED: ONDANSETRON 4 MG/2 ML VIAL IVP PRN (11:45)
[2019-05-02] MEDS ORDERED: ACETAMINOPHEN 325 MG TAB PO PRN (11:45)
[2019-05-02] MEDS ORDERED: APAP/HYDROCODONE 325/5 TAB PO PRN (11:45)
[2019-05-02] MEDS ORDERED: HYDROmorphone HCL 2 MG/ML SDV IVP PRN (11:45)
[2019-05-02] MEDS ORDERED: BELLADONNA ALK/OPIUM 60MG SUPP PR PRN (11:50)
[2019-05-02] MEDS ORDERED: ABATACEPT 250 MG IVPB SCH (11:55)
[2019-05-02] MEDS ORDERED: CETIRIZINE HCL 10 MG TAB PO PRN (11:55)
[2019-05-02] MEDS ORDERED: NON-FORMULARY MEDICATION MISCELL (Oxygen 2 L) INH SCH (11:55)
[2019-05-02] MEDS: KETOROLAC 30 MG/ML VIAL IVP SCH ×3 (13:40→23:55)
--- NOTE | 2019-05-02 14:04 | OPERATIVE REPORT 1 ---
EVENT DATE: May 02, 2019 SURGEON: Myron Brothers MD ANESTHESIOLOGIST: Fermín Rivera MD ANESTHESIA: weaving instructor: None. PREOPERATIVE DIAGNOSIS Phimosis and abnormal cystoscopy with gross hematuria. POSTOPERATIVE DIAGNOSIS Phimosis and abnormal cystoscopy with gross hematuria. PROCEDURE PERFORMED Circumcision, cystoscopy with bladder biopsy and fulguration. DESCRIPTION OF PROCEDURE The patient was brought to the operating room and after the adequate induction of general anesthesia, he was placed in the relaxed dorsal lithotomy position. The genitalia were scrubbed, prepped and draped in a sterile fashion and a penile block placed with 0.25% plain Marcaine in circumferential fashion. A straight clamp was applied at the 12 o'clock position and at the 6 o'clock position to the level of the frenulum and then the intervening tissue incised. The resultant lateral wings were then sharply excised with the curved Shah scissors. Bleeding was controlled with cautery where necessary and then the cutaneous aspect of the prepuce reanastomosed to the mucosal aspect with interrupted 3-0 Vicryl suture. I then performed cystoscopy. The anterior urethra was normal. The prostatic urethra had a somewhat high-riding bladder neck. Within the bladder at the level of the left posterolateral bladder wall, again was noted an area of erythematous and edematous mucosa. It was not consistent with a papillary or sessile bladder tumor. Two biopsies were obtained with the cold-cup biopsy forceps and then the entire area thoroughly fulgurated. The bladder mucosa was thoroughly examined with regular light and narrow band imaging and no other mucosal abnormalities were identified. A circumferential dressing was applied to the circumcision site and a 20-Faroese Grey catheter passed into the bladder and connected to gravity drainage. A B and O suppository was administered. He was aroused from anesthesia and then transported to the PACU in stable condition. [facility]ITAL[facility]
[2019-05-02] MEDS: KCL/D1/2NS 20 MEQ 1000 ML 1,000 ML IV SCH (14:46)
[2019-05-02] MEDS: FAMOTIDINE 20 MG TAB PO SCH (20:16)
[2019-05-02] MEDS: BACITRACIN OINT 0.9 GM PKT TP SCH (20:17)
[2019-05-02] MEDS: DOCUSATE SODIUM 100 MG CAP PO SCH (20:17)
[2019-05-02] MEDS ORDERED: NAPROXEN 500 MG TAB PO SCH (21:00)
[2019-05-03 03:09] VITALS: BP 107/56
[2019-05-03] MEDS: KCL/D1/2NS 20 MEQ 1000 ML 1,000 ML IV SCH (03:40)
[2019-05-03] MEDS: KETOROLAC 30 MG/ML VIAL IVP SCH ×2 (06:08→11:41)
[2019-05-03 06:52] VITALS: BP 125/75
--- NOTE | 2019-05-03 08:26 | Urology Progress Note ---
Subjective Patient Complains of: Neurological: No: Syncope, Confusion, Weakness, Dizziness, Slurred Speech, Other Cardiovascular: No: Chest Pain, Palpitations, Orthostatic Hypotension, Other Genitourinary: No Dysuria, No Hematuria, No Urinary Incontinence, No Other Physical Exam Vital Signs Date Time Temp Pulse Resp B/P (MAP) Pulse Ox O2 Delivery O2 Flow Rate FiO2 05/03/19 06:52 98.7 55 16 125/75 (92) 96 Nasal Cannula 05/03/19 03:09 3.0 Intake and Output 05/03/19 07:01 Intake Total 1760 ml Output Total 375 ml Balance 1385 ml Intake Oral 480 ml IV Total 1280 ml Output Urine Total 375 ml General Appearance: Alert, Awake, No Acute Distress Respiratory: No Respiratory Distress GI: Soft and Non-Tender : No CVA Tenderness Musculoskeletal: Other (he is feeling much better from a musculoskeletal standpoint. Before all that he received is likely helping his joint pain) Integumentary: Other (circumcision site is well perfused. Grey catheter has been removed.) Result Diagram: 05/03/19 0512 Assessment and Plan Problems: (1) Phimosis Status: Resolved (2) Bladder mass Status: Resolved Condition He's feeling well from a musculoskeletal standpoint, likely from the Toradol that he received overnight. His urine output was low but his morning labs indicate that he may be somewhat dehydrated (23/0.8) I stopped his IV fluids but I would like him to try and hydrate orally this morning. If he is able to void, I think he can go home sometime around lunchtime. I will have him follow-up with me to review his bladder pathology next week. Time Spent: < 30 min Exam Sepsis Risk: No Definite Risk SARITA SARAVIA MD May 03, 2019 08:26
[2019-05-03] MEDS ORDERED: ESCITALOPRAM OXALATE 10 MG TAB PO SCH (09:00)
[2019-05-03] MEDS ORDERED: predniSONE 5 MG TAB PO SCH (09:00)
[2019-05-03] MEDS ORDERED: FOLIC ACID 1 MG TAB PO SCH (09:00)
[2019-05-03] MEDS ORDERED: ENOXAPARIN 40 MG/0.4ML SYR SC SCH (09:00)
[2019-05-03] MEDS ORDERED: SPIRONOLACTONE 25 MG TAB PO SCH (09:00)
[2019-05-03] MEDS: DOCUSATE SODIUM 100 MG CAP PO SCH (09:59)
[2019-05-03] MEDS: FAMOTIDINE 20 MG TAB PO SCH (09:59)
[2019-05-03] MEDS: BACITRACIN OINT 0.9 GM PKT TP SCH (10:00)
[2019-05-03 11:08] VITALS: BP 128/67
--- NOTE | 2019-05-03 12:09 | Urology Discharge Summary ---
Discharge Summary Reason for Hosp/Final Diag: (1) Phimosis Status: Resolved (2) Bladder mass Status: Resolved Departure Weight (Pounds): 187 Weight (Ounces): 0.8 Result Diagram: 05/03/19511 Condition: Improved Discharge: Home Discharge Instructions Home Meds Active Scripts Enoxaparin Sodium (ENOXAPARIN SODIUM) 40 Mg/0.4 Ml Disp.syrin, 40 MG SQ QDAY for 20 Days, #20 SYR 0 Refills Inject once daily in abdomen as instructed before and after bladder procedure. Prov:DANAY DO PHARMGeetha 04/28/19 Cetirizine Hcl (CETIRIZINE HCL) 5 Mg Tablet, 5 MG PO QDAY PRN for allergies for 90 Days, #90 TAB 4 Refills Prov:WENDY NEAL MD 04/07/19 Escitalopram Oxalate (ESCITALOPRAM OXALATE) 5 Mg Tablet, 1 TAB PO QDAY, #90 TAB 3 Refills Prov:MAG PARTIDA MD 09/30/18 Warfarin Sodium (WARFARIN SODIUM) 5 Mg Tablet, 1 TAB PO QDAY, #90 TAB 3 Refills Or as directed based on INR. Prov:MAG PARTIDA MD 09/30/18 Spironolactone (SPIRONOLACTONE) 25 Mg Tablet, 1 TAB PO QAM, #90 TAB 3 Refills Prov:MAG PARTIDA MD 07/28/18 Folic Acid (FOLIC ACID) 1 Mg Tablet, 1 TAB PO DAILY, #90 TAB 4 Refills Prov:DANAY DO PHARMD 06/01/17 Methotrexate Sodium (METHOTREXATE) 2.5 Mg Tablet, 6 TAB PO QWEEK, #72 TAB 3 Refills Prov:NACHO LANDERS MD 05/09/15 Reported Medications Lactose-Free Food (BOOST) 237 Ml Liquid, 1 BOTTLE PO DAILY 04/07/19 Naproxen Sodium (ALEVE) 220 Mg Capsule, 1 TAB PO BID, CAPSULE 04/07/19 Prednisone (Prednisone) 5 Mg Tablet, 1 TAB PO DAILY 01/04/19 Abatacept (Orencia 250 mg Vial) 250 Mg Vial, 750 MG IV Q4WK 03/09/18 Oxygen (OXYGEN) Inha, 2 L INH cont 11/04/16 Diet: Regular Activity: As Tolerated Special Instructions: Follow-up with Dr Saravia in one week to review bladder biopsy results Venous Thromboembolism Antithrombotics Is Pt On Any Antithrombotics?: Yes SARITA SARAVIA MD May 03, 2019 12:09
[2019-05-07] MEDS ORDERED: METHOTREXATE 2.5 MG TAB PO SCH (09:00)
== END 2019-05-03 13:50 | disposition home or self-care (01) ==
LOC: OR 01:33 → INTOOBSV 13:09 → MED 13:09
PROVIDERS: ADMIT Urology; ATTEND Urology
DX: N47.1 Phimosis (principal); R31.0 Gross hematuria
CPT/HCPCS: 36415; 52224; 54150; 85610; 88305; 96372; A4338; A9270; G0378; J1100; J1650; J1720; J1885; J1956; J2001; J2405; J2704; J3010; J3480; J3490; J7512; 82310; 82374; 82435; 82565; 82947; 84132; 84295; 84520; C9399

== ENCOUNTER → 2019-05-27 | Outpatient (CLI) | payer MEDICARE, BC ==
[2015-04-15 10:15] VITALS: BMI 31.6
== END ==
LOC: LAB 12:59
PROVIDERS: ATTEND Internal Medicine
DX: I10 Essential (primary) hypertension (principal)
CPT/HCPCS: 36415; 82040; 82247; 82310; 82374; 82435; 82565; 82947; 84075; 84132; 84155; 84295; 84450; 84460; 84520; 85027